=== PATIENT | male | born 1985 | race African-American/Black ===

== ENCOUNTER 2017-06-18 15:12 | Emergency (ER) | payer OTHER ==
[2017-06-18] MEDS ORDERED: NS 0.9% 1000 ML* 2,000 ML IV ONE (15:37)
[2017-06-18 15:51] LABS: Hematocrit 41 % (42-52); Mean Corpuscular HGB Conc 34 g/dl (31-36); Mean Corpuscular Hemoglobin 31 pg (27-31); Mean Corpuscular Volume 90 fL (80-94); Mean Platelet Volume 8 um3 (7.4-10.4); Red Blood Count 4.55 10^6/ul (4.0-5.4); Red Cell Distribution Width 13 % (10.5-15); White Blood Count 5.8 10^3/ul (3.5-10.8)
--- NOTE | 2017-06-18 15:55 | RAD ---
Indication: Syncopal episode. Comparison: No relevant prior exams available on the [facility] for comparison. Technique: Upright AP 1541 hours Report: Clear lungs and pleural spaces. Negative for pneumothorax. The heart, pulmonary vasculature, and mediastinal contours are unremarkable. Unremarkable osseous structures and soft tissue contours. IMPRESSION: No evidence for acute intrathoracic disease.
[2017-06-18 16:12] LABS: ALT 116 U/L (7-52); AST 170 U/L (13-39); Albumin 4.6 g/dL (3.2-5.2); Alkaline Phosphatase 98 U/L (34-104); Anion Gap 14 mmol/L (2-11); Blood Urea Nitrogen 8 mg/dL (6-24); CO2 Carbon Dioxide 21 mmol/L (22-32); Calcium 9.6 mg/dL (8.6-10.3); Chloride 101 mmol/L (101-111); EGFR African American 80.1 (>60); EGFR Non-African American 62.3 (>60); Globulin 2.8 g/dL (2-4); Glucose 179 mg/dL (70-100); Magnesium 2.3 mg/dL (1.9-2.7); Potassium 3.8 mmol/L (3.5-5.0); Sodium 136 mmol/L (133-145); Total Protein 7.4 g/dL (6.4-8.9)
[2017-06-18 16:36] LABS: TSH (Thyroid Stimulating Horm) 1.79 mcIU/mL (0.34-5.60)
[2017-06-18 17:39] LABS: Acetaminophen < 15 mcg/mL; Alcohol < 10 mg/dL (<10); Lipase 21 U/L (11.0-82.0); Salicylate < 2.50 mg/dL (<30)
[2017-06-18 19:11] LABS: Urine Bacteria Absent (Absent); Urine Bilirubin Negative (Negative); Urine Glucose Negative (Negative); Urine Nitrite Negative (Negative); Urine Sperm Present (Absent)
--- NOTE | 2017-06-18 19:39 | ED ---
Steven Chiu Angela, scribed for Jonathan Sarabia MD on 06/18/17 at 1537 . Syncope/Near Syncope - HPI Summary HPI Summary: This pt is a 32 y/o male presenting to [facility] c/o syncope today. Pt reports that he was downtown on his way back home from a therapy session. He notes was in [employer] restaurant and had just eaten soup when he passed out while walking. Pt notes waking up with his things on the ground, and was confused. Pt denies chest pain or heart palpitations prior to his syncopal episode. He states he cut his lip s/p syncope episode. Pt notes he has had difficulty sleeping for the last couple of weeks and this morning he did not eat. Pt denies headache, back pain, abd pain, difficulty breathing, SOB, sore throat. Pt denies prior episodes of syncope. PMHx of anxiety. - History Of Current Complaint Chief Complaint: EDSyncope Time Seen by Provider: 06/18/17 15:25 Hx Obtained From: Patient Onset/Duration: Sudden Onset Associated Head Trauma: No Aggravating Factor(s): Nothing Alleviating Factor(s): Spontaneous Resolution Associated Signs And Symptoms: Diaphoresis - Allergies/Home Medications Allergies/Adverse Reactions: Allergies Allergy/AdvReac Type Severity Reaction Status Date / Time Penicillins Allergy Hives Verified 06/18/17 15:51 PMH/Surg Hx/FS Hx/Imm Hx Endocrine/Hematology History: Denies: Hx Diabetes Cardiovascular History: Denies: Hx Coronary Artery Disease, Hx Hypertension Psychiatric History: Reports: Hx Anxiety Infectious Disease History: Denies: Traveled Outside the [place] in Last 30 Days - Family History Known Family History: Positive: Hypertension, Diabetes Negative: Cardiac Disease - Social History Alcohol Use: Occasionally Substance Use Type: Reports: None Hx Tobacco Use: Yes - socially Review of Systems Positive: Skin Diaphoresis. Negative: Fever, Chills Eyes: Negative ENT: Other - lip laceration s/p syncope Cardiovascular: Negative Respiratory: Negative Gastrointestinal: Negative Genitourinary: Negative Musculoskeletal: Negative Skin: Negative Neurological: Other - confusion s/p syncope. Positive: Syncope - 1 syncopal episode All Other Systems Reviewed And Are Negative: Yes Physical Exam Triage Information Reviewed: Yes Vital Signs On Initial Exam: Initial Vitals Temp Pulse Resp BP Pulse Ox 97.7 F 122 14 170/101 97 06/18/17 15:15 06/18/17 15:15 06/18/17 15:15 06/18/17 15:15 06/18/17 15:15 Vital Signs Reviewed: Yes Appearance: Positive: Well-Appearing, No Pain Distress Skin: Positive: Warm, Skin Color Reflects Adequate Perfusion, Diaphoretic Head/Face: Positive: Normal Head/Face Inspection Eyes: Positive: EOMI, JENNIE ENT: Positive: Other - TWO LOWER LIP LACERATIONS, EACH 5MM AND NOT BLEEDING. PATIENT HAS A CHIPPED UPPER FRONT TOOTH. Neck: Positive: Supple, Nontender Respiratory/Lung Sounds: Positive: Clear to Auscultation, Breath Sounds Present Cardiovascular: Positive: Tachycardia Abdomen Description: Positive: Nontender, Soft Musculoskeletal: Positive: Normal, Strength/ROM Intact Neurological: Positive: Normal, Sensory/Motor Intact, Alert, Oriented to Person Place, Time Psychiatric: Positive: Anxious Diagnostics - Vital Signs Vital Signs Temp Pulse Resp BP Pulse Ox 06/18/17 15:15 97.7 F 122 14 170/101 97 - Laboratory Lab Results: Lab Results 06/18/17 06/18/17 06/18/17 Range/Units 15:40 15:40 15:40 WBC 5.8 (3.5-10.8) 10^3/ul RBC 4.55 (4.0-5.4) 10^6/ul Hgb 14.0 (14.0-18.0) g/dl Hct 41 L (42-52) % MCV 90 (80-94) fL MCH 31 (27-31) pg MCHC 34 (31-36) g/dl RDW 13 (10.5-15) % Plt Count 208 (150-450) 10^3/ul MPV 8 (7.4-10.4) um3 Neut % (Auto) 72.4 (38-83) % Lymph % (Auto) 19.6 L (25-47) % [place] % (Auto) 7.3 (1-9) % Eos % (Auto) 0.2 (0-6) % Baso % (Auto) 0.5 (0-2) % Absolute Neuts (auto) 4.2 (1.5-7.7) 10^3/ul Absolute Lymphs (auto) 1.1 (1.0-4.8) 10^3/ul Absolute Monos (auto) 0.4 (0-0.8) 10^3/ul Absolute Eos (auto) 0 (0-0.6) 10^3/ul Absolute Basos (auto) 0 (0-0.2) 10^3/ul Absolute Nucleated RBC 0.01 10^3/ul Nucleated RBC % 0.1 Sodium 136 (133-145) mmol/L Potassium 3.8 (3.5-5.0) mmol/L Chloride 101 (101-111) mmol/L Carbon Dioxide 21 L (22-32) mmol/L Anion Gap 14 H (2-11) mmol/L BUN 8 (6-24) mg/dL Creatinine 1.33 H (0.67-1.17) mg/dL Est GFR ( Amer) 80.1 (>60) Est GFR (Non-Af Amer) 62.3 (>60) BUN/Creatinine Ratio 6.0 L (8-20) Glucose 179 H (70-100) mg/dL Lactic Acid 4.4 H* (0.5-2.0) mmol/L Calcium 9.6 (8.6-10.3) mg/dL Magnesium 2.3 (1.9-2.7) mg/dL Total Bilirubin 1.90 H (0.2-1.0) mg/dL AST 170 H (13-39) U/L ALT 116 H (7-52) U/L Alkaline Phosphatase 98 (34-104) U/L Troponin I 0.00 (<0.04) ng/mL Total Protein 7.4 (6.4-8.9) g/dL Albumin 4.6 (3.2-5.2) g/dL Globulin 2.8 (2-4) g/dL Albumin/Globulin Ratio 1.6 (1-3) Lipase 21 (11.0-82.0) U/L TSH 1.79 (0.34-5.60) mcIU/mL Urine Color Urine Appearance Urine pH (5-9) Ur Specific [place] (1.010-1.030) Urine Protein (Negative) Urine Ketones (Negative) Urine Blood (Negative) Urine Nitrate (Negative) Urine Bilirubin (Negative) Urine Urobilinogen (Negative) Ur Leukocyte Esterase (Negative) Urine WBC (Auto) (Absent) Urine RBC (Auto) (Absent) Amorphous Crystals (Absent) Urine Bacteria (Absent) Hyaline Casts (Absent) Granular Casts (Absent) Urine Sperm (Absent) Urine Glucose (Negative) Salicylates < 2.50 (<30) mg/dL Acetaminophen < 15 mcg/mL Serum Alcohol < 10 (<10) mg/dL 06/18/17 Range/Units 18:07 WBC (3.5-10.8) 10^3/ul RBC (4.0-5.4) 10^6/ul Hgb (14.0-18.0) g/dl Hct (42-52) % MCV (80-94) fL MCH (27-31) pg MCHC (31-36) g/dl RDW (10.5-15) % Plt Count (150-450) 10^3/ul MPV (7.4-10.4) um3 Neut % (Auto) (38-83) % Lymph % (Auto) (25-47) % [place] % (Auto) (1-9) % Eos % (Auto) (0-6) % Baso % (Auto) (0-2) % Absolute Neuts (auto) (1.5-7.7) 10^3/ul Absolute Lymphs (auto) (1.0-4.8) 10^3/ul Absolute Monos (auto) (0-0.8) 10^3/ul Absolute Eos (auto) (0-0.6) 10^3/ul Absolute Basos (auto) (0-0.2) 10^3/ul Absolute Nucleated RBC 10^3/ul Nucleated RBC % Sodium (133-145) mmol/L Potassium (3.5-5.0) mmol/L Chloride (101-111) mmol/L Carbon Dioxide (22-32) mmol/L Anion Gap (2-11) mmol/L BUN (6-24) mg/dL Creatinine (0.67-1.17) mg/dL Est GFR ( Amer) (>60) Est GFR (Non-Af Amer) (>60) BUN/Creatinine Ratio (8-20) Glucose (70-100) mg/dL Lactic Acid (0.5-2.0) mmol/L Calcium (8.6-10.3) mg/dL Magnesium (1.9-2.7) mg/dL Total Bilirubin (0.2-1.0) mg/dL AST (13-39) U/L ALT (7-52) U/L Alkaline Phosphatase (34-104) U/L Troponin I (<0.04) ng/mL Total Protein (6.4-8.9) g/dL Albumin (3.2-5.2) g/dL Globulin (2-4) g/dL Albumin/Globulin Ratio (1-3) Lipase (11.0-82.0) U/L TSH (0.34-5.60) mcIU/mL Urine Color Yellow Urine Appearance Cloudy Urine pH 5.0 (5-9) Ur Specific [place] 1.020 (1.010-1.030) Urine Protein 1+(30 mg/dl) H (Negative) Urine Ketones Trace H (Negative) Urine Blood Negative (Negative) Urine Nitrate Negative (Negative) Urine Bilirubin Negative (Negative) Urine Urobilinogen Negative (Negative) Ur Leukocyte Esterase Negative (Negative) Urine WBC (Auto) Trace(0-5/hpf) (Absent) Urine RBC (Auto) 1+(3-5/hpf) H (Absent) Amorphous Crystals Present H (Absent) Urine Bacteria Absent (Absent) Hyaline Casts Present H (Absent) Granular Casts Present H (Absent) Urine Sperm Present H (Absent) Urine Glucose Negative (Negative) Salicylates (<30) mg/dL Acetaminophen mcg/mL Serum Alcohol (<10) mg/dL Result Diagrams: 06/18/17 15:40 06/18/17 15:40 Lab Statement: Any lab studies that have been ordered have been reviewed, and results considered in the medical decision making process. - Radiology Chest XR Xray Interpretation: No Acute Changes - IMPRESSION: No evidence for acute intrathoracic disease. ED physician has reviewed this radiology report and agrees. Radiology Interpretation Completed By: Radiologist - EKG 15:42 Cardiac Rate: Tachycardia - 102 bpm EKG Rhythm: Sinus Rhythm ST Segment: Normal Ectopy: None Course/Dx Assessment/Plan: This pt is a 32 y/o male presenting to [facility] c/o syncope today. Pt reports that he was downtown on his way back home from a therapy session. He notes was in [employer] restaurant and had just eaten soup when he passed out while walking. Pt notes waking up with his things on the ground, and was confused. Pt denies chest pain or heart palpitations prior to his syncopal episode. Labs, UA, chest XR, and EKG were obtained. In the ED course, the pt was given IV fluids. Chest XR reveals no evidence for acute intrathoracic disease. EKG shows sinus tachycardia with no ST elevations. Labs are notable for lymph % of 19.6, anion gap of 14, BUN/creatinine ratio of 6, glucose of 179 , lactic acid of 4.4, AST of 170, ALT of 116. Tox screen is negative for salicylates, acetaminophen, and alcohol. Elevated BP noted and advised to follow up with PCP. Medications reviewed. PATIENT FEELS IMPROVED IN ED. PATIENT DENIED CHEST PAIN/PALPITATIONS. ALL THE HX INDICATES SYNCOPE WITHOUT SEIZURE ACTIVITY. THE LIP LACERATIONS ARE CLOSED AND NOT REQUIRING CLOSURE. DISCUSSED RESULTS WITH PATIENT. HE WILL F/U WITH PMD; HE WILL RETURN IF WORSE. - Diagnoses Provider Diagnoses: Syncope, Elevated LFTs, Creatinine elevation, Lip laceration Discharge - Discharge Plan Condition: Stable Disposition: HOME Patient Education Materials: Syncope (ED), Laceration Without Closure (ED), Impaired Kidney Function (ED) Referrals: [facility] [Primary Care Provider] - Additional Instructions: FOLLOW UP WITH YOUR DOCTOR FOR YOUR SYNCOPAL EPISODE AND YOUR ELEVATED KIDNEY AND LIVER FUNCTION BLOOD TESTS. RETURN TO THE EMERGENCY DEPARTMENT FOR ANY WORSENING OF YOUR CONDITION; CHEST PAIN, SHORTNESS OF BREATH, YOU PASS OUT OR QUESTIONS OR CONCERNS. The documentation as recorded by the Steven wellington Angela accurately reflects the service I personally performed and the decisions made by me, Jonathan Sarabia MD.
[2017-06-18 20:28] VITALS: BP 144/93
== END 2017-06-18 20:28 | disposition home or self-care (01) ==
LOC: ED 15:12
DX: S01.511A Laceration without foreign body of lip, initial encounter (principal); R55 Syncope and collapse; R94.5 Abnormal results of liver function studies; W19.XXXA Unspecified fall, initial encounter; Y93.9 Activity, unspecified; Y92.9 Unspecified place or not applicable
CPT/HCPCS: 36415; 71010; 80053; 80320; 80329; 81003; 81015; 83605; 83690; 83735; 84443; 84484; 85025; 93005; 99283; G0480